=== PATIENT | female | born 1970 | race Caucasian/White ===

== ENCOUNTER → 2019-06-05 | Outpatient (CLI) | payer OTHER ==
[2019-06-06 14:10] LABS: Beef IgE <0.10 kU/L (<0.10); Beef IgE Class CLASS 0; Pork IgE Class CLASS 0; Yeast Bakers/Brew IgE <0.10 kU/L (<0.10)
[2019-06-06 14:11] LABS: Alt. alternata IgE Class CLASS 1; Asperg. fumagatus IgE <0.10 kU/L (<0.10); Asperg. fumagatus IgE Class CLASS 0; Aureo. pullulans IgE <0.10 kU/L (<0.10); Aureo. pullulans IgE Class CLASS 0; Avocado Class CLASS 0; Banana IgE Class CLASS 0; Birch(Com.Silvr) IgE <0.10 kU/L (<0.10); Birch(Com.Silvr) IgE Class CLASS 0; Candida albicans IgE Class CLASS 0; Cat Epith & Dander IgE <0.10 kU/L (<0.10); Cat Epith & Dander IgE Class CLASS 0; Chicken IgE Class CLASS 0; Clad herbarum IgE <0.10 kU/L (<0.10); Clad herbarum IgE Class CLASS 0; Cockroach IgE <0.10 kU/L (<0.10); Com. Pigweed IgE <0.10 kU/L (<0.10); Com. Pigweed IgE Class CLASS 0; Cottonwood IgE <0.10 kU/L (<0.10); Cow's Milk IgE Class CLASS 0; Dermato. Pteronyssinus Class CLASS 0; Dermato. Pteronyssinus IgE <0.10 kU/L (<0.10); Dermato. farinae IgE <0.10 kU/L (<0.10); Dermato. farinae IgE Class CLASS 0; Dog Dander IgE <0.10 kU/L (<0.10); Egg White IgE <0.10 kU/L (<0.10); English Plantain IgE Class CLASS 0; Epicoccum purpurascens Class CLASS 0; Epicoccum purpurascens IgE <0.10 kU/L (<0.10); Gluten IgE Class CLASS 0; Hazelnut IgE <0.10 kU/L (<0.10); Hazelnut IgE Class CLASS 0; Johnson Grass IgE Class CLASS 0; Kiwi IgE <0.10 kU/L (<0.10); Kiwi IgE Class CLASS 0; Lamb's Quarter IgE <0.10 kU/L (<0.10); Lamb's Quarter IgE Class CLASS 0; Latex IgE Class CLASS 0; Maple (Box Elder) IgE <0.10 kU/L (<0.10); Maple (Box Elder) IgE Class CLASS 0; Mucor racemosus IgE <0.10 kU/L (<0.10); Mucor racemosus IgE Class CLASS 0; Oak IgE <0.10 kU/L (<0.10); Peanut IgE <0.10 kU/L (<0.10); Potato IgE <0.10 kU/L (<0.10); Potato IgE Class CLASS 0; Rhizopus nigricans IgE <0.10 kU/L (<0.10); S.rostrata/Helminth Class CLASS 0; S.rostrata/Helminth IgE <0.10 kU/L (<0.10); Soybean IgE <0.10 kU/L (<0.10); Sycamore(Mpl.Lf) IgE <0.10 kU/L (<0.10); Timothy Grass IgE <0.10 kU/L (<0.10); Walnut Tree IgE <0.10 kU/L (<0.10); Walnut Tree IgE Class CLASS 0; White Ash IgE Class CLASS 0
== END ==
LOC: LABWHC1 11:49
PROVIDERS: ATTEND Otolaryngology
DX: L50.0 Allergic urticaria (principal)
CPT/HCPCS: 36415; 86003

== ENCOUNTER 2021-02-24 09:08 | Day surgery (SDC) | payer OTHER ==
[2021-02-22 09:31] VITALS: BMI 34.6
[~2021-02-24 09:08] MED LIST: LACTATED RINGERS 1,000 ML IV SCH
[2021-02-24] MEDS ORDERED: LIDOCAINE 1% (10MG/ML) FOR IV START INTRADERMA ONE (09:30)
[2021-02-24 09:45] VITALS: TEMP 97.3
[2021-02-24 09:48] LABS: Glucose,Whole Blood 110 mg/dL (75-99)
[2021-02-24] MEDS ORDERED: LIDOCAINE 1% INJ 10MG/ML (20 ML MDV) ONE (10:12)
[2021-02-24] MEDS ORDERED: PROPOFOL 10 MG/ML 20 ML VIAL IV ONE (10:12)
[2021-02-24 10:38] VITALS: BP 124/70; PULSE 70; RESP 14
--- NOTE | 2021-02-24 10:39 | P.GSHP ---
History of Present Illness H&P Date: 02/24/21 CHIEF COMPLAINT: Colon screen HISTORY OF PRESENT ILLNESS: The patient is a 50-year-old female who presents for colon screen. Lower endoscopy was offered for further evaluation and management. PAST MEDICAL HISTORY: Please see list. PAST SURGICAL HISTORY: Please see list. MEDICATIONS: Please see list. ALLERGIES: Please see list. SOCIAL HISTORY: No illicit drug use FAMILY HISTORY: No reports of Crohn disease or ulcerative colitis. REVIEW OF ORGAN SYSTEMS: CONSTITUTIONAL: No reports of fevers or chills. PHYSICAL EXAM: VITAL SIGNS: Stable GENERAL: Well-developed pleasant in no acute distress. HEENT: No scleral icterus. Extraocular movements grossly intact. Moist buccal mucosa. NECK: Supple without lymphadenopathy. CHEST: Unlabored respirations. Equal bilateral excursions. CARDIOVASCULAR: Regular rate and rhythm. Distal 2+ pulses. ABDOMEN: Soft, nontender, nondistended. MUSCULOSKELETAL: No clubbing, cyanosis, or edema. ASSESSMENT: 1. Colon screen. PLAN: 1. Recommend proceeding with a lower endoscopy Past Medical History Past Medical History: Hypertension History of Any Multi-Drug Resistant Organisms: None Reported Past Surgical History: Hysterectomy, Uterine Ablation Additional Past Surgical History / Comment(s): colonoscopy Past Anesthesia/Blood Transfusion Reactions: No Reported Reaction, Postoperative Nausea & Vomiting (PONV) Smoking Status: Never smoker - Past Family History Mother Family Medical History: Cancer Additional Family Medical History / Comment(s): colon cancer Medications and Allergies Home Medications Medication Instructions Recorded Confirmed Type Escitalopram [Lexapro] 5 mg PO DAILY 02/22/21 02/22/21 History Hydrochlorothiazide 12.5 mg PO DAILY 02/22/21 02/22/21 History [hydroCHLOROthiazide] [place]-3 Fatty Acids/Fish Oil [Fish 1 each PO DAILY 02/22/21 02/22/21 History Oil 1,000 mg Softgel] Vit C/E/Zn/Coppr/Lutein/Zeaxan 1 each PO DAILY 02/22/21 02/22/21 History [Preservision Areds 2 Softgel] Allergies Allergy/AdvReac Type Severity Reaction Status Date / Time cephalexin [From Keflex] Allergy Rash/Hives Verified 02/24/21 09:22 Surgical - Exam Vital Signs Temp Pulse Resp BP Pulse Ox 97.3 F L 73 16 135/86 98 02/24/21 09:30 02/24/21 09:30 02/24/21 09:30 02/24/21 09:30 02/24/21 09:30 Results - Labs Abnormal Lab Results - Last 24 Hours (Table) 02/24/21 Range/Units 09:39 POC Glucose (mg/dL) 110 H (75-99) mg/dL
--- NOTE | 2021-02-24 10:41 | P.PCN ---
Date of Procedure: 02/24/21 Description of Procedure: PREOPERATIVE DIAGNOSIS: Colonoscopy screening. Family history colon cancer, mother POSTOPERATIVE DIAGNOSIS: Colonoscopy screening. Family history colon cancer, mother Poor prep OPERATION: Colonoscopy to the transverse colon SURGEON: Adrianne Marin MD. ANESTHESIA: MAC. INDICATIONS: The patient is a 50-year-old female who presents for colonoscopy screening. Benefits and risks were described and informed consent was obtained. DESCRIPTION OF PROCEDURE: The patient had undergone Suprep. The patient had been brought into the operating room and laid in the left lateral decubitus position. After adequate intravenous sedation, the rectum was examined with 2% lidocaine jelly. External hemorrhoids were encountered. The rectal tone was within normal limits. No lesions were palpated in the rectal vault. An Olympus colonoscope was advanced with abdominal wall pressure to the hub of the scope. The scope reached the mid- transverse colon. The prep was poor limiting view of the mucosa with moderate brown liquid stool. No large scattered diverticulosis was encountered. No large colonic polyps were found distal the to ascending colon. Retroflexion of the scope demonstrated grade 3 internal hemorrhoids without active bleeding or inflammation. The colon was desufflated. The patient had tolerated the procedure well. Withdrawal time was over 6 minutes. FINDINGS: Aronchick preparation quality scale 4 (1-5) Internal hemorrhoids, grade 3 External prolapsed hemorrhoids, grade 3 No arteriovenous malformations. No large adenomatous polyps distal to ascending colon RECOMMENDATIONS: 1. Recommend barium enema for ascending colon, cecum and ileocecal valve. 2. Recommend 2 days colon prep 3. For high risk history, repeat colonoscopy 3 years, 2023 Plan - Discharge Summary Discharge Rx Participant: No New Discharge Prescriptions: Continue Vit C/E/Zn/Coppr/Lutein/Zeaxan [Preservision Areds 2 Softgel] 1 each PO DAILY Escitalopram [Lexapro] 5 mg PO DAILY Hydrochlorothiazide [hydroCHLOROthiazide] 12.5 mg PO DAILY [place]-3 Fatty Acids/Fish Oil [Fish Oil 1,000 mg Softgel] 1 each PO DAILY Discharge Medication List Escitalopram [Lexapro] 5 mg PO DAILY 02/22/21 [History] Hydrochlorothiazide [hydroCHLOROthiazide] 12.5 mg PO DAILY 02/22/21 [History] [place]-3 Fatty Acids/Fish Oil [Fish Oil 1,000 mg Softgel] 1 each PO DAILY 02/22/21 [History] Vit C/E/Zn/Coppr/Lutein/Zeaxan [Preservision Areds 2 Softgel] 1 each PO DAILY 02/22/21 [History] Follow up Appointment(s)/Referral(s): Adrianne Marin MD [STAFF PHYSICIAN] - 03/15/21 Patient Instructions/Handouts: Barium Enema (IP), *Surgery [facility] - (Anesthesia) Endoscopy Discharge Instructions, Colonoscopy (DC) Activity/Diet/Wound Care/Special Instructions: Recommend 2 day colon prep. Will need barium enema. Repeat colonoscopy in 3 years, 2023 Discharge Disposition: HOME SELF-CARE
== END 2021-02-24 11:18 | disposition home or self-care (01) ==
LOC: ORWHC2ENDO 09:08
PROVIDERS: ATTEND Surgery Plastic and Reconstructive Surgery
DX: Z12.11 Encounter for screening for malignant neoplasm of colon (principal); I10 Essential (primary) hypertension; Z80.0 Family history of malignant neoplasm of digestive organs; Z79.899 Other long term (current) drug therapy; Z88.1 Allergy status to other antibiotic agents
CPT/HCPCS: 81025; G0121; J2001; J2704

== ENCOUNTER → 2024-05-14 | Day surgery (SDC) | payer BC, OTHER ==
[~2024-05-14] MED LIST changes: +LIDOCAINE 1% (10MG/ML) FOR IV START INTRADERMA PRN; +LIDOCAINE 1% INJ 10MG/ML (20 ML MDV) ONE; +PROPOFOL 10 MG/ML 20 ML VIAL IV ONE
[2024-05-14] MEDS: IV FLUID CONTINUATION 1,000 ML IV ONE (07:41)
[2024-05-14 07:52] VITALS: TEMP 97
--- NOTE | 2024-05-14 08:21 | P.GSHP ---
History of Present Illness H&P Date: 05/14/24 CHIEF COMPLAINT: Colon screen HISTORY OF PRESENT ILLNESS: The patient is a 54-year-old female who presents for colon screen. Lower endoscopy was offered for further evaluation and management. PAST MEDICAL HISTORY: Please see list. PAST SURGICAL HISTORY: Please see list. MEDICATIONS: Please see list. ALLERGIES: Please see list. SOCIAL HISTORY: No illicit drug use FAMILY HISTORY: No reports of Crohn disease or ulcerative colitis. REVIEW OF ORGAN SYSTEMS: CONSTITUTIONAL: No reports of fevers or chills. PHYSICAL EXAM: VITAL SIGNS: Stable GENERAL: Well-developed pleasant in no acute distress. HEENT: No scleral icterus. Extraocular movements grossly intact. Moist buccal mucosa. NECK: Supple without lymphadenopathy. CHEST: Unlabored respirations. Equal bilateral excursions. CARDIOVASCULAR: Regular rate and rhythm. Distal 2+ pulses. ABDOMEN: Soft, nontender, nondistended. MUSCULOSKELETAL: No clubbing, cyanosis, or edema. ASSESSMENT: 1. Colon screen. PLAN: 1. Recommend proceeding with a lower endoscopy Past Medical History Past Medical History: Hypertension Additional Past Medical History / Comment(s): family hx. colon cancer History of Any Multi-Drug Resistant Organisms: None Reported Past Surgical History: Cholecystectomy, Uterine Ablation Additional Past Surgical History / Comment(s): colonoscopy Past Anesthesia/Blood Transfusion Reactions: Postoperative Nausea & Vomiting (PONV) Smoking Status: Never smoker - Past Family History Mother Family Medical History: Cancer Additional Family Medical History / Comment(s): colon cancer Medications and Allergies Home Medications Medication Instructions Recorded Confirmed Type Vit C/E/Zn/Coppr/Lutein/Zeaxan 1 each PO BID 02/22/21 05/14/24 History [Preservision Areds 2 Softgel] hydroCHLOROthiazide 25 mg PO DAILY 02/22/21 05/14/24 History FLUoxetine HCL [PROzac] 10 mg PO DAILY 05/09/24 05/14/24 History Allergies Allergy/AdvReac Type Severity Reaction Status Date / Time cephalexin [From Keflex] Allergy Rash/Hives Verified 05/14/24 07:53 Surgical - Exam Vital Signs Temp Pulse Resp BP Pulse Ox 97.0 F L 88 16 166/84 97 05/14/24 07:51 05/14/24 07:51 05/14/24 07:51 05/14/24 07:51 05/14/24 07:51
--- NOTE | 2024-05-14 09:38 | P.PCN ---
Date of Procedure: 05/14/24 Description of Procedure: PREOPERATIVE DIAGNOSIS: Colonoscopy screening. Family history colon cancer POSTOPERATIVE DIAGNOSIS: Colonoscopy screening. Internal and external hemorrhoids, grade 3 OPERATION: Colonoscopy to the hepatic flexure SURGEON: Adrianne Marin MD. ANESTHESIA: MAC. INDICATIONS: The patient is a 54-year-old female who presents for colonoscopy screening. Benefits and risks were described and informed consent was obtained. DESCRIPTION OF PROCEDURE: The patient had undergone GoLytely prep. The patient had been brought into the operating room and laid in the left lateral decubitus position. After adequate intravenous sedation, the rectum was examined with 2% lidocaine jelly. No external hemorrhoids were encountered. The rectal tone was within normal limits. No lesions were palpated in the rectal vault. An Olympus colonoscope was advanced throughout highly redundant sigmoid colon requiring abdominal pressure to the hepatic flexure. The scope was advanced to the hub. The prep was good. Scattered diverticulosis was encountered. No colonic polyps were found. No evidence of focal colitis was found. Retroflexion of the scope demonstrated grade 1 internal hemorrhoids without active bleeding or inflammation. The colon was desufflated. The patient had tolerated the procedure well. Withdrawal time was over 6 minutes. FINDINGS: Aronchick preparation quality scale (1-5) Internal hemorrhoids, grade 3 External prolapsed hemorrhoids, grade 3 No arteriovenous malformations. No adenomatous polyps. No focal colitis. Highly redundant sigmoid colon requiring completion barium enema to the hepatic flexure RECOMMENDATIONS: Recommend barium enema Repeat colonoscopy 5 years, 2028 Plan - Discharge Summary Discharge Rx Participant: No New Discharge Prescriptions: New Lactulose [Cephulac] 20 gm PO DAILY PRN #500 ml PRN Reason: Constipation Continue Vit C/E/Zn/Coppr/Lutein/Zeaxan [Preservision Areds 2 Softgel] 1 each PO BID FLUoxetine HCL [PROzac] 10 mg PO DAILY hydroCHLOROthiazide 25 mg PO DAILY Discharge Medication List Vit C/E/Zn/Coppr/Lutein/Zeaxan [Preservision Areds 2 Softgel] 1 each PO BID 02/22/21 [History] hydroCHLOROthiazide 25 mg PO DAILY 02/22/21 [History] FLUoxetine HCL [PROzac] 10 mg PO DAILY 05/09/24 [History] Lactulose [Cephulac] 20 gm PO DAILY PRN #500 ml 05/14/24 [Rx] Follow up Appointment(s)/Referral(s): Adrianne Marin MD [STAFF PHYSICIAN] - 06/03/24 2:30 pm Patient Instructions/Handouts: *Surgery [facility] - (Anesthesia) Discharge Instructions Outpatient Surgery, Hemorrhoids (DC) Activity/Diet/Wound Care/Special Instructions: Repeat colonoscopy 5 years, 2028 Discharge Disposition: HOME SELF-CARE
[2024-05-14 11:35] VITALS: BP 138/83; PULSE 75; RESP 16
--- NOTE | 2024-05-14 13:29 | FL ---
EXAMINATION TYPE: FL barium enema DATE OF EXAM: 05/14/2024 12:57 PM CLINICAL INDICATION:Female, 54 years old with history of incomplete scope to hep flexure; COMPARISON: None TECHNIQUE: The procedure was explained and patient history elicited. All patient questions were answ ered prior to beginning. Multiple spot fluoroscopic images of the colon were obtained after the recta l administration of liquid barium as the contrast agent. Multiple postprocedural overhead images, w ere obtained and reviewed. Fluoroscopic time: 1 minute 16 seconds Fluoroscopic images:0 Radiographs taken: 31 DAP: not recorded [id number] FINDINGS: The healthcare advisory services manager abdominal radiograph demonstrates a normal bowel gas pattern without dilated loo ps of small or large bowel. There is no evidence for organomegaly or pneumoperitoneum. No abnormal calcifications. The visualized osseous structures are intact. Cholecystectomy clips in the right upp er quadrant. Large amount of gas throughout seen throughout the colon which limits evaluation. The colon demonstra michaela normal course and contour without evidence of focal stricture, internal filling defects, or abnor mal outpouching. Views of the cecum with manual compression are unremarkable. Postevacuation images are unremarkable. IMPRESSION: Extensive gas in the cecum and ascending colon limits evaluation. No evidence for abnormal stricture or mass lesion within the sigmoid colon. [facility], , 05/14/2024 1:27 PM
== END | disposition home or self-care (01) ==
LOC: ORWHC2ENDO 07:26
PROVIDERS: ATTEND Surgery Plastic and Reconstructive Surgery
DX: Z12.11 Encounter for screening for malignant neoplasm of colon (principal); K57.30 Diverticulosis of large intestine without perforation or abscess without bleeding; K64.2 Third degree hemorrhoids; Z80.0 Family history of malignant neoplasm of digestive organs; I10 Essential (primary) hypertension; Z79.899 Other long term (current) drug therapy; Z88.1 Allergy status to other antibiotic agents
CPT/HCPCS: 81025; 74270; J2003; J2704; G0105; 45378

== ENCOUNTER 2024-11-13 09:08 | Inpatient (IN) | payer BC ==
[2024-11-12 09:31] VITALS: BMI 38.6
--- NOTE | 2024-11-13 08:30 | P.GSHP ---
History of Present Illness H&P Date: 11/13/24 CHIEF COMPLAINT: History of sigmoid volvulus HISTORY OF PRESENT ILLNESS: The patient is a 54-year-old female with long- standing history of chronic constipation including large bowel obstruction secondary to sigmoid volvulus. She presents for colonoscopy tattooing including decompression of the colon for sigmoid volvulus. She presents for sigmoid colon resection. PAST MEDICAL HISTORY: Please see list. PAST SURGICAL HISTORY: Please see list. MEDICATIONS: Please see list. ALLERGIES: Please see list. SOCIAL HISTORY: No illicit drug use FAMILY HISTORY: No reports of Crohn disease or ulcerative colitis. REVIEW OF ORGAN SYSTEMS: CONSTITUTIONAL: Denies any fever or chills. Has morbid obesity. HEENT: Denies any trouble with vision or nosebleeds. No difficulty swallowing. LYMPHATIC: The patient denies any lumps and bumps around the neck. ENDOCRINE: Denies any thyroid disorders. RESPIRATORY: Denies pneumonia. Denies any troubles with breathing or dyspnea on exertion. CARDIOVASCULAR: Denies any chest pain, palpitations, or recent heart attacks. Has hypertensive heart disease. GASTROINTESTINAL: Has gastroesophageal reflux disease. Has chronic constipation. GENITOURINARY: No blood in urine. MUSCULOSKELETAL: Has back pain, stiffness, joint arthritis. NEUROLOGIC: Denies any numbness or tingling along the distal extremities. No seizure disorders or headaches. PSYCHIATRIC: Has depressive disorder. Has anxiety disorder. HEMATOLOGIC: Denies any abnormal bleeding or bruising. PHYSICAL EXAM: VITAL SIGNS: Stable GENERAL: Well-developed pleasant in no acute distress. HEENT: No scleral icterus. Extraocular movements grossly intact. Moist buccal mucosa. NECK: Supple without lymphadenopathy. CHEST: Unlabored respirations. Equal bilateral excursions. CARDIOVASCULAR: Regular rate and rhythm. Distal 2+ pulses. ABDOMEN: Soft, nontender, nondistended. MUSCULOSKELETAL: No clubbing, cyanosis, or edema. NERUO: Cranial nerves II through XII grossly intact PSYCH: Alert and oriented to person place and time. ASSESSMENT: 1. History of large bowel obstruction. 2. Sigmoid volvulus. 3. Morbid obesity excess calories PLAN: 1. Recommend endoscopic assessment with colon decompression and tattooing 2. Enhanced colon recovery program initiated. 3. DVT prophylaxis. 4. Antibiotic prophylaxis. 5. Benefits and risks of surgical intervention with low anterior resection/sigmoid colectomy for volvulus reviewed in detail. Robotic-assisted approach was also described. Past Medical History Past Medical History: Hypertension Additional Past Medical History / Comment(s): "My colon is too long."family hx. colon cancer History of Any Multi-Drug Resistant Organisms: None Reported Past Surgical History: Cholecystectomy, Uterine Ablation Additional Past Surgical History / Comment(s): colonoscopy. Vein removed rt leg. Past Anesthesia/Blood Transfusion Reactions: No Reported Reaction, Postoperative Nausea & Vomiting (PONV) Smoking Status: Never smoker - Past Family History Mother Family Medical History: Cancer Additional Family Medical History / Comment(s): colon cancer Medications and Allergies Home Medications Medication Instructions Recorded Confirmed Type Vit C/E/Zn/Coppr/Lutein/Zeaxan 1 each PO BID 02/22/21 11/12/24 History [Preservision Areds 2 Softgel] hydroCHLOROthiazide 25 mg PO QAM 02/22/21 11/12/24 History FLUoxetine HCL [PROzac] 10 mg PO QAM 05/09/24 11/12/24 History Lactulose [Cephulac] 20 gm PO HS 11/12/24 11/12/24 History Allergies Allergy/AdvReac Type Severity Reaction Status Date / Time cephalexin [From Keflex] Allergy Rash/Hives Verified 11/12/24 09:23
[~2024-11-13 09:08] MED LIST changes: +Antibiotics per Pharmacy 1 EACH MISC MISCELLANE PRN; -LACTATED RINGERS 1,000 ML IV SCH; -LIDOCAINE 1% (10MG/ML) FOR IV START INTRADERMA PRN; -LIDOCAINE 1% INJ 10MG/ML (20 ML MDV) ONE; -PROPOFOL 10 MG/ML 20 ML VIAL IV ONE
[2024-11-13] MEDS: IV FLUID CONTINUATION 1,000 ML IV ONE ×2 (09:37→11:07)
[2024-11-13] MEDS: LACTATED RINGERS 1,000 ML IV SCH (10:01)
[2024-11-13] MEDS ORDERED: PROPOFOL 10 MG/ML 20 ML VIAL IV ONE (10:26)
--- NOTE | 2024-11-13 10:47 | P.PCN ---
Date of Procedure: 11/13/24 Description of Procedure: PREOPERATIVE DIAGNOSIS: Sigmoid volvulus Intermittent large bowel obstruction POSTOPERATIVE DIAGNOSIS: Sigmoid volvulus Intermittent large bowel obstruction Diverticulosis, sigmoid OPERATION: Colonoscopy to the hepatic flexure SURGEON: Adrianne Marin MD. ANESTHESIA: MAC. INDICATIONS: The patient is a 54-year-old male who presents with sigmoid volvulus and intermittent large bowel obstruction. She presents for tattooing and decompression of sigmoid volvulus. Benefits and risks were described and informed consent was obtained. DESCRIPTION OF PROCEDURE: The patient had undergone SuFlave prep. The patient had been brought into the operating room and laid in the left lateral decubitus position. After adequate intravenous sedation, the rectum was examined with 2% lidocaine jelly. External hemorrhoids were encountered. Prostate was unremarkable. The rectal tone was within normal limits. No lesions were palpated in the rectal vault. An Olympus colonoscope was advanced through tortuous sigmoid colon requiring abdominal wall pressure. Despite multiple maneuvers scope passed to the ascending colon without intubation of the cecum. The prep was fair. Scattered diverticulosis was encountered. No evidence of focal colitis was found. Retroflexion of the scope demonstrated grade 2 internal hemorrhoids without active bleeding or inflammation. The colon was desufflated. The patient had tolerated the procedure well. Withdrawal time was over 6 minutes. FINDINGS: Aronchick preparation quality scale 2+ (1-5) Internal hemorrhoids, grade 1 External prolapsed hemorrhoids, grade 1 No arteriovenous malformations. Highly redundant sigmoid colon requiring abdominal wall pressure No focal colitis. RECOMMENDATIONS: Admission for sigmoid colectomy for intermittent bowel obstruction
[2024-11-13 11:05] LABS: ALT 23 U/L (4-34); AST 29 U/L (14-36); African American GFR (CKD) >90 (>60 ml/min/1.73 sqM); Albumin 4.5 g/dL (3.5-5.0); Alkaline Phosphatase 84 U/L (38-126); Anion Gap 13 mmol/L; Blood Urea Nitrogen 10 mg/dL (7-17); Calcium 9.4 mg/dL (8.4-10.2); Carbon Dioxide 27 mmol/L (22-30); Chloride 97 mmol/L (98-107); Glucose 106 mg/dL (74-99); Non-African American GFR(CKD) >90 (>60 ml/min/1.73 sqM); Potassium 3.6 mmol/L (3.5-5.1); Sodium 137 mmol/L (137-145); Total Bilirubin 0.8 mg/dL (0.2-1.3); Total Protein 7.7 g/dL (6.3-8.2)
[2024-11-13] MEDS: SODIUM CHLORIDE 0.9% 1,000 ML IV SCH ×2 (11:07→13:37)
[2024-11-13] MEDS ORDERED: ONDANSETRON 4 MG/2 ML VIAL IVP PRN (11:13)
[2024-11-13 11:14] LABS: Basophils # (A) 0.07 10*3/uL (0.00-0.10); Eosinophils # (A) 0.13 10*3/uL (0.04-0.35); Eosinophils % (A) 1.9 %; HCT 43.6 % (37.2-46.3); HGB 15.6 g/dL (12.0-15.0); Lymphocytes # (A) 1.82 10*3/uL (0.90-5.00); Lymphocytes % (A) 27.2 %; MCH 30.5 pg (27.0-32.0); MCHC 35.8 g/dL (32.0-37.0); MCV 85.3 fL (80.0-97.0); Mean Platelet Volume 12.7 fL (9.5-12.2); Monocytes # (A) 0.41 10*3/uL (0.20-1.00); Monocytes % (A) 6.1 %; Neutrophils # (A) 4.24 10*3/uL (1.80-7.70); Neutrophils % (A) 63.5 %; Platelet Count 209 10*3/uL (140-440); RBC 5.11 10*6/uL (4.10-5.20); RDW 13.2 % (11.5-14.5); WBC 6.69 10*3/uL (4.50-10.00)
[2024-11-13] MEDS: SCOPOLAMINE 1 MG/72 HR PATCH TRANSDERM STA (11:18)
[2024-11-13] MEDS: POTASSIUM CHLORIDE ER 20 MEQ TAB.ER PO SCH (13:36)
[2024-11-13] MEDS: metroNIDAZOLE 500 MG TAB PO SCH (14:38)
[2024-11-13] MEDS: PEG 3350 (420 GM/BTL) + LYTES 4,000 ML BOTTLE PO ONE (14:39)
[2024-11-13] MEDS: NEOMYCIN 500 MG TAB PO SCH ×2 (14:39→23:23)
[2024-11-13] MEDS: metroNIDAZOLE 500 MG TAB PO ONE (15:36)
[2024-11-13] MEDS: NEOMYCIN 500 MG TAB PO ONE (15:36)
[2024-11-13] MEDS: ONDANSETRON 4 MG/2 ML VIAL IVP SCH (19:29)
[2024-11-13] MEDS: TEMAZEPAM 15 MG CAP PO ONE (23:22)
[2024-11-14] MEDS ORDERED: ONDANSETRON 4 MG/2 ML VIAL IVP PRN (05:00)
[2024-11-14] MEDS ORDERED: metroNIDAZOLE-NS PMX 500 MG in SALINE 1 100ML.BAG IVPB PRN (05:00)
[2024-11-14 05:01] LABS: HCT 35.1 % (37.2-46.3); MCH 29.9 pg (27.0-32.0); MCHC 33.3 g/dL (32.0-37.0); MCV 89.8 fL (80.0-97.0); Platelet Count 177 10*3/uL (140-440); RBC 3.91 10*6/uL (4.10-5.20); RDW 13.8 % (11.5-14.5); WBC 5.62 10*3/uL (4.50-10.00)
[2024-11-14 05:11] LABS: African American GFR (CKD) >90 (>60 ml/min/1.73 sqM); Anion Gap 6 mmol/L; Blood Urea Nitrogen 5 mg/dL (7-17); Calcium 8.8 mg/dL (8.4-10.2); Carbon Dioxide 22 mmol/L (22-30); Chloride 109 mmol/L (98-107); Glucose 85 mg/dL (74-99); Non-African American GFR(CKD) >90 (>60 ml/min/1.73 sqM); Potassium 4.5 mmol/L (3.5-5.1); Sodium 137 mmol/L (137-145)
[2024-11-14 05:20] LABS: HGB 11.7 g/dL (12.0-15.0)
[2024-11-14 06:34] LABS: Eosinophils # (M) 0.06 k/uL (0-0.7); Lymphocytes # (M) 1.97 k/uL (1.0-4.8); Monocytes # (M) 0.45 k/uL (0-1.0); Neutrophils # (M) 3.15 k/uL (1.3-7.7); Neutrophils % (M) 56 %; Nucleated Red Blood Cells 0 /100 WBC (0-0); RBC Morphology Normal; Total Cells Counted 100
--- NOTE | 2024-11-14 07:20 | P.HPADDEND ---
H&P Addendum H&P Addendum Date: 11/14/24 Patient's labs reviewed. She had artificial elevation of her hemoglobin due to dehydration. After 2 L bolus and hydration, hemoglobin less than 12.0. Will monitor. Potassium corrected. Robotic sigmoid colectomy for sigmoid volvulus and intermittent bowel obstruction described.
[2024-11-14] MEDS: metroNIDAZOLE 500 MG TAB PO SCH (08:09)
[2024-11-14] MEDS: IV FLUID CONTINUATION 250 ML IV ONE (08:17)
[2024-11-14] MEDS: FLUoxetine HCL 10 MG CAP PO SCH (08:23)
[2024-11-14] MEDS: MELOXICAM 7.5 MG TAB PO PRN (08:36)
[2024-11-14] MEDS: ACETAMINOPHEN TAB 500 MG TAB PO PRN (08:36)
[2024-11-14] MEDS: ALVIMOPAN 12 MG CAPSULE PO PRN (08:37)
[2024-11-14] MEDS: DEXAMETHASONE SOD PHOSPHATE 4 MG/ML 1 ML VIAL IVP STA (08:43)
[2024-11-14] MEDS: MIDAZOLAM 2 MG/2 ML VIAL IV STA (09:25)
[2024-11-14] MEDS: HEPARIN SODIUM,PORCINE 5,000 UNIT/ML 1 ML VIAL SQ PRN (09:40)
[2024-11-14] MEDS ORDERED: ROPIVACAINE 5 MG/ML 30 ML VIAL ONE (10:05)
[2024-11-14] MEDS ORDERED: LIDOCAINE 1% INJ 10MG/ML (20 ML MDV) ONE (10:05)
[2024-11-14] MEDS ORDERED: SODIUM CHLORIDE 0.9% (PF) 10 ML VIAL ONE (10:05)
[2024-11-14] MEDS ORDERED: PROPOFOL 10 MG/ML 20 ML VIAL IV ONE (10:05)
[2024-11-14] MEDS ORDERED: HYDROmorphone (PF) 1 MG/ML ONE (10:05)
[2024-11-14] MEDS ORDERED: GLYCOPYRROLATE 0.2 MG/ML 2 ML VIAL ONE (10:05)
[2024-11-14] MEDS ORDERED: ROCURONIUM 10 MG/ML (5 ML VIAL) IV ONE (10:05)
[2024-11-14] MEDS ORDERED: SUCCINYLCHOLINE CHLORIDE 200 MG/10 ML VIAL IV ONE (10:05)
[2024-11-14] MEDS ORDERED: fentaNYL (PF) 50 MCG/ML 2 ML AMP ONE (10:05)
[2024-11-14] MEDS ORDERED: DEXAMETHASONE SOD PHOSPHATE 4 MG/ML 1 ML VIAL ONE (10:05)
[2024-11-14] MEDS ORDERED: MIDAZOLAM 2 MG/2 ML VIAL ONE (10:05)
[2024-11-14] MEDS ORDERED: NEOSTIGMINE 1 MG/ML 10 ML VIAL ONE (10:05)
[2024-11-14] MEDS: ceFAZolin 2 GM in DEXTROSE 5% IN WATER 50 ML IVPB PRN (10:09)
[2024-11-14] MEDS: LACTATED RINGERS 1,000 ML IV ONE ×2 (10:19→10:22)
[2024-11-14] MEDS: LIDOCAINE 1%-EPI 1:100,000 20 ML VIAL SQ ONE (10:37)
[2024-11-14] MEDS ORDERED: HYDROmorphone 1 MG/ML 1 ML SYRINGE IVP PRN (13:03)
[2024-11-14] MEDS ORDERED: METOCLOPRAMIDE 5 MG/ML 2 ML VIAL IVP PRN (13:03)
[2024-11-14] MEDS ORDERED: BENZOCAINE/MENTHOL LOZENG 1 EACH LOZENGE MUCOUS MEM PRN (13:03)
[2024-11-14] MEDS ORDERED: NALOXONE 0.4 MG/ML 1 ML VIAL IV PRN (13:10)
--- NOTE | 2024-11-14 13:24 | P.OP ---
Date of Procedure: 11/14/24 Description of Procedure: SURGEON: GLEN BUSBY MD PREOPERATIVE DIAGNOSES: 1. Sigmoid volvulus with intermittent bowel obstruction 2. Sigmoid diverticulosis 3. Morbid obesity to excess calories, BMI 38.5 4. Hypertensive heart disease 5. Depressive disorder 6. Postoperative nausea and vomiting 7. Generalized anxiety disorder 8. Family history colon cancer POSTOPERATIVE DIAGNOSES: 1. Sigmoid volvulus with intermittent bowel obstruction 2. Sigmoid diverticulosis 3. Morbid obesity to excess calories, BMI 38.5 4. Hypertensive heart disease 5. Depressive disorder 6. Postoperative nausea and vomiting 7. Generalized anxiety disorder 8. Family history colon cancer 9. Pelvic adhesions OPERATION: 1. Robotic-assisted daVinci Xi sigmoid colectomy with low anterior resection using 29 mm Ethicon powered stapler 2. Intraoperative colonoscopy used for sigmoidoscopy Anesthesia: GETA, local, regional Estimated Blood Loss (ml): 5 Pathology: 1. Sigmoid colon 2. EEA donuts 3. Proximal colotomy Condition: stable Disposition: floor COMPLICATIONS: None. Operative Findings: 1. Redundant sigmoid colon with intermittent sigmoid volvulus 2. Anastomosis with EEA stapler 29 mm 3. No tension or torsion along the anastomosis 4. Doughnuts thick and both sides and viable 5. Moderately redundant sigmoid colon without tension at anastomosis 6. Negative leak test with viable anastomosis. 7. Pelvic adhesions along midline, lysed including along sigmoid colon INDICATIONS: The patient is a 54-year-old female who presents with intermittent bowel obstruction including change in bowel habits and tortuous colon. She had prior colonoscopy however unsuccessful due to redundancy of colon. Enhanced colon recovery program was initiated. Benefits and risks of surgical intervention was described in detail including infection, injury to the ureter, colostomy creation, possibility for additional surgery was discussed at length. Informed consent was obtained. All questions of the patient and family were answered. DESCRIPTION: Earlier the patient had undergone a bowel prep using the enhanced colon recovery program. The patient was transferred to the operating room and placed supine. After general induction, the abdomen was prepped and draped in standard sterile fashion. Ioban was placed along the abdomen to minimize any contamination of skin floor. A Em catheter was placed. After a timeout protocol was performed, attention was then brought to the left upper quadrant whereby a 0 degree 5 mm laparoscopic trocar entry was performed. The abdominal cavity was entered and insufflated to 15 mmHg pressure, which was tolerated well. Diagnostic laparoscopy confirmed moderately redundant sigmoid colon intermittent sigmoid volvulus. The small bowel was unremarkable. Next a robotic 12-mm trocar was placed along the right lateral abdominal wall 20 cm superior from the pelvis. Two 8 mm ports were placed along the upper abdomen. Ports were placed 10 cm apart from each other including 20 cm away from the target anatomy of the left pelvis. A 12-mm port was placed at the left lateral abdominal wall. The robot was docked along the right lateral abdomen. The patient was positioned in steep Trendelenburg position at 21-degrees. Using atraumatic graspers and vessel sealer, the robotic system was docked and primed as described. Instruments were interchanged by the respiratory assistant including hook cautery, needle stock driver, robotic stapler and vessel sealer. The robot stapler was prepared along the right lateral abdominal wall. The stapler 12-mm port was arranged along the right lateral abdominal wall. Next, attention was brought to identify the sigmoid colon. Adhesions along the lower midline was identified omentum to abdominal wall and lysed using vessel sealer. Additional adhesions were found of the pelvis involving the sigmoid colon and descending colon. These adhesions were lysed using hook cautery. A stay suture using 3- 0 silk was placed along the anterior serosa of the redundant sigmoid colon. The sigmoid mesentery was mobilized using a vessel sealer whereby the descending colon was marked and tagged. Using robot stapler 60 mm green load, the proximal sigmoid colon was divided. The mesentery of the sigmoid colon was mobilized towards the pelvic brim and sacral promontory using a vessel sealer. Next, the sigmoid colon was divided using the robotic stapler 60 mm green staple loads. The rest of the sigmoid colon mesentery was mobilized using vessel sealer. Additionally, the sigmoid colon was mobilized onto the colon to minimize injury to the ureters. I went to the foot of the bed to confirm sizers and placement of 29-mm Ethicon powered stapler. I re-scrubbed into the case. The robotic arms were temporarily undocked. A 29-mm anvil was placed with a 3-0 silk sutured at the tip of the anvil colors custodian. Then the anvil was placed via the left upper quadrant 12 mm port. All robotic arms were re-docked. I went back to the console. The staple line was opened using hook cautery. The anvil was entered into the proximal descending colon. The colotomy was closed using 60 mm green load. Next, the sharp tip of the anvil colors custodian was brought through the middle of the staple line. The anvil colors custodian was removed from the abdomen using empty clip appliers. I went to the foot of the bed to place the powered Ethicon 29 mm stapler via the rectum. The anvil and stapler were connected for 1 minute. The doughnuts were intact on both sides and thick. An intraoperative leak test was performed as I inserted the colonoscope to the anastomosis. Endoscopic images were obtained. Irrigation was placed in the pelvis and no air leaks were identified. Irrigation fluid was aspirated from the pelvis until dry. I went back to the console. All sponges and needles were removed from the abdominal cavity. The robot was undocked. I re-scrubbed into the case. Via the left upper quadrant port, the sigmoid colon was removed using 15 mm Endo Catch bag. All sponges were removed from the abdominal cavity. The left upper q uadrant incision was widened to 3-cm. No contamination had occurred throughout the case. The fascial defect was oversewn using 0 Vicryl and a Haim Cabrales. Next all pneumoperitoneum was evacuated from the abdominal cavity. The 8-mm trocar sites were reapproximated using 4-0 Monocryl in an interrupted subcuticular fashion. Local anesthetic was infiltrated to all wounds for postop analgesia. All incisions were also cleansed with diluted hydrogen peroxide. An Optifoam surgical dressing was placed over the colon extraction site. Liquid glue was applied to the rest of the skin incisions. The patient had tolerated the procedure well. The patient was extubated successfully. The patient was transferred to the postanesthesia care unit in stable condition. Intraoperative findings were described in detail to the patient's family. Console time: 74 minutes
--- NOTE | 2024-11-14 13:41 | P.DS ---
Providers Date of admission: 11/13/2024 Expected date of discharge: 11/15/24 Attending physician: Adrianne Marin Primary care physician: Leroy Kessler - Discharge Diagnosis(es) (1) Sigmoid volvulus Current Visit: Yes Status: Acute (2) Diverticulosis large intestine w/o perforation or abscess w/o bleeding Current Visit: Yes Status: Acute Hospital Course: POSTOPERATIVE DIAGNOSES: 1. Sigmoid volvulus with intermittent bowel obstruction 2. Sigmoid diverticulosis 3. Morbid obesity to excess calories, BMI 38.5 4. Hypertensive heart disease 5. Depressive disorder 6. Postoperative nausea and vomiting 7. Generalized anxiety disorder 8. Family history colon cancer 9. Pelvic adhesions COURSE: The patient is a 54-year-old female with long-standing history of chronic constipation including large bowel obstruction secondary to sigmoid volvulus. She underwent prior colonoscopy however incomplete due to redundancy of her colon. Patient does a family history of colon cancer as well. She underwent sigmoid colectomy to address sigmoid volvulus including intermittent large bowel obstruction. Postoperatively, patient was tolerating diet, pain control, she was voiding spontaneously. Close outpatient follow-up was described with nonnarcotic pain management. Procedures: Date of Procedure: 11/14/24 Description of Procedure: OPERATION: 1. Robotic-assisted daVinci Xi sigmoid colectomy with low anterior resection using 29 mm Ethicon powered stapler 2. Intraoperative colonoscopy used for sigmoidoscopy Anesthesia: GETA, local, regional Estimated Blood Loss (ml): 5 Pathology: 1. Sigmoid colon 2. EEA donuts 3. Proximal colotomy Condition: stable Disposition: floor COMPLICATIONS: None. Operative Findings: 1. Redundant sigmoid colon with intermittent sigmoid volvulus 2. Anastomosis with EEA stapler 29 mm 3. No tension or torsion along the anastomosis 4. Doughnuts thick and both sides and viable 5. Moderately redundant sigmoid colon without tension at anastomosis 6. Negative leak test with viable anastomosis. 7. Pelvic adhesions along midline, lysed including along sigmoid colon Date of Procedure: 11/13/24 Description of Procedure: PREOPERATIVE DIAGNOSIS: Sigmoid volvulus Intermittent large bowel obstruction POSTOPERATIVE DIAGNOSIS: Sigmoid volvulus Intermittent large bowel obstruction Diverticulosis, sigmoid OPERATION: Colonoscopy to the hepatic flexure Patient Condition at Discharge: Stable Plan - Discharge Summary Discharge Rx Participant: Yes New Discharge Prescriptions: New Ibuprofen [Motrin] 600 mg PO Q8HR PRN #30 tab PRN Reason: Pain Acetaminophen Tab [Tylenol Tab] 1,000 mg PO Q6HR PRN #30 tablet PRN Reason: Pain Cyclobenzaprine [Flexeril] 10 mg PO TID #30 tab Simethicone [Gas-X] 125 mg PO AC-TID PRN #20 capsule PRN Reason: Pain Continue Vit C/E/Zn/Coppr/Lutein/Zeaxan [Preservision Areds 2 Softgel] 1 each PO BID FLUoxetine HCL [PROzac] 10 mg PO QAM Lactulose [Cephulac] 20 gm PO HS hydroCHLOROthiazide 25 mg PO QAM Discharge Medication List Vit C/E/Zn/Coppr/Lutein/Zeaxan [Preservision Areds 2 Softgel] 1 each PO BID 02/22/21 [History] hydroCHLOROthiazide 25 mg PO QAM 02/22/21 [History] FLUoxetine HCL [PROzac] 10 mg PO QAM 05/09/24 [History] Lactulose [Cephulac] 20 gm PO HS 11/12/24 [History] Acetaminophen Tab [Tylenol Tab] 1,000 mg PO Q6HR PRN #30 tablet 11/14/24 [Rx] Cyclobenzaprine [Flexeril] 10 mg PO TID #30 tab 11/14/24 [Rx] Ibuprofen [Motrin] 600 mg PO Q8HR PRN #30 tab 11/14/24 [Rx] Simethicone [Gas-X] 125 mg PO AC-TID PRN #20 capsule 11/14/24 [Rx] Follow up Appointment(s)/Referral(s): Adrianne Marin MD [STAFF PHYSICIAN] - 11/18/24 6:30 pm Patient Instructions/Handouts: Colectomy Diet (DC), Laparoscopic Bowel Resection (GEN) Activity/Diet/Wound Care/Special Instructions: EXPECT BOWEL MOVEMENT WITH BLOOD FOR 1 WEEK, November 21 TAKE LAXATIVE FOR CONSTIPATION AFTER 4 DAYS, November 18 NO LONG DRIVES OR AIRPLANE RIDES OVER 60 MINUTES FOR THE NEXT 2 WEEKS, November 21 DUE TO HIGH RISK OF PULMONARY EMBOLISM/DVTs May drive after 24 to 48 hours after recovery from anesthesia. Wear abdominal binder for comfort. No lifting over 4 pounds in 4 weeks, December 15November shower. No bath tub soaks for two weeks until May 9 Avoid steak, tough meats and nuts, broccoli, seeds such as raspberry seeds. See diverticulitis, low fiber, colectomy diet Use Tylenol and ibuprofen scheduled for the next 24-48 hours for best pain relief. Use ice along incisions for today to prevent swelling. Discharge Disposition: HOME SELF-CARE
[2024-11-14] MEDS: SIMETHICONE 40 MG/0.6 ML DROPS 2,000 MG/30 ML BOTTLE PO SCH (14:22)
[2024-11-14] MEDS: fentaNYL PCA 500 MCG/50 ML BAG IV SCH (15:43)
[2024-11-14] MEDS: HEPARIN SODIUM,PORCINE 5,000 UNIT/ML 1 ML VIAL SQ SCH (17:53)
--- NOTE | 2024-11-14 20:09 | P.PN ---
Progress Note - Text Progress Note Date: 11/14/24 Discussed with nursing. 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 Discharge held for today. Fluid bolus, tylenol, toradol, magnesium ordered.
[2024-11-14] MEDS: ACETAMINOPHEN TAB 500 MG TAB PO SCH (20:13)
[2024-11-14] MEDS: KETOROLAC 15 MG/ML 1 ML VIAL IVP SCH (20:14)
[2024-11-14] MEDS: MAGNESIUM SULFATE-D5W PMX 1 GM in DEXTROSE/WATER 1 100ML.BAG IVPB SCH (20:14)
[2024-11-14] MEDS: SODIUM CHLORIDE 0.9% 1,000 ML IV ONE (20:15)
[2024-11-14 21:11] VITALS: RESP 18
[2024-11-14] MEDS: TAMSULOSIN 0.4 MG CAP.ER.24H PO STA (21:54)
[2024-11-14] MEDS: metroNIDAZOLE-NS PMX 500 MG in SALINE 1 100ML.BAG IVPB SCH (22:41)
[2024-11-15] MEDS: ceFAZolin 2 GM in DEXTROSE 5% IN WATER 50 ML IVPB SCH (00:04)
[2024-11-15 01:52] VITALS: PULSE 64
[2024-11-15 08:00] VITALS: BP 98/58; TEMP 98.4
[2024-11-15] MEDS: ALVIMOPAN 12 MG CAPSULE PO SCH (08:28)
[2024-11-15] MEDS: HEPARIN SODIUM,PORCINE 5,000 UNIT/ML 1 ML VIAL SQ SCH (08:28)
--- NOTE | 2024-11-15 11:00 | P.PN ---
Subjective Progress Note Date: 11/15/24 CHIEF COMPLAINT: Sigmoid volvulus HISTORY OF PRESENT ILLNESS: The patient is a 54-year-old female with intermittent bowel obstruction due to sigmoid volvulus status post colectomy. Last night, patient had nausea and pain, headache and lethargy. She was treated with magnesium, Toradol, Tylenol, IV fluid bolus. Today, she had a bowel movement. She is passing flatus. She is ambulating. She tolerated diet. Her headache is resolved. She is urinating well. Her pain is well-controlled. She is seeking to go home today. ROS: No reports of nausea and vomiting. No bowel movements. No fevers or chills. No new chest pain. No productive sputum PHYSICAL EXAM: VITAL SIGNS: Reviewed CONSTITUTIONAL: Well developed and in no acute distress. EYES: Conjuctivae without sclera icterus. Extraocular movements grossly intact. HEAD, EARS, NOSE, THROAT: Moist buccal mucosa. Head is atraumatic, no rmocephalic. Hears conversational speech. No nasal drainage. RESPIRATORY: Non-labored respirations and equal bilateral excursions. CARDIOVASCULAR: Palpable 2+ radial pulses. ABDOMEN: Incisions clean dry intact MUSCULOSKELETAL: No gross deformity of the lower extremities noted. No clubbing. No cyanosis. SKIN: Good skin turgor. Well perfused. NEUROLOGIC: Cranial nerves II through XII grossly intact. No focal or lateralizing signs. PSYCH: Appropriate affect. Alert and oriented to person, place and time. CLINICAL LABS: Reviewed. ASSESSMENT: 1. Large bowel obstruction due to sigmoid volvulus PLAN: 1. Clinically she is doing very well. Discharge instructions were reviewed. Dictation was produced using [employer] dictation software. Please excuse any grammatical, word or spelling errors. Objective - Vital Signs Vital signs: Vital Signs Temp 98.4 F 11/15/24 07:16 Pulse 64 11/15/24 07:50 Resp 18 11/15/24 07:50 BP 98/58 11/15/24 07:16 Pulse Ox 97 11/15/24 09:07 FiO2 Intake & Output 11/14/24 11/15/24 11/15/24 18:59 06:59 18:59 Intake Total 1200 540 Output Total 205 1500 Balance 995 -960 Intake: IV 1200 Oral 540 Output: Urine 200 1500 Estimated Blood Loss 5 Other: Voiding Method Toilet Toilet # Voids 2 - Labs CBC & Chem 7: 11/14/24 04:06 11/14/24 04:06 Assessment and Plan (1) Sigmoid volvulus Current Visit: Yes Status: Acute Code(s): K56.2 - VOLVULUS SNOMED Code(s): 322220770 (2) Diverticulosis large intestine w/o perforation or abscess w/o bleeding Current Visit: Yes Status: Acute Code(s): K57.30 - DVRTCLOS OF LG INT W/O PERFORATION OR ABSCESS W/O BLEEDING SNOMED Code(s): 950835559
--- NOTE | 2024-11-16 18:54 | P.ANPRN ---
Procedure Note - Anesthesia - Nerve Block Performed Bilateral Erector Spinae Single Time Out Performed: Yes Date of Procedure: 11/14/24 Procedure Start Time: Procedure Stop Time: Location of Patient: PreOp Indication: Acute Post-Operative Pain, Requested by Surgeon Sedation Type: Sedate with meaningful contact maintained Preparation: Sterile Prep Position: Prone Needle Types: Pajunk Needle Gauge: 21 Ultrasound used to visualize needle placement: Yes Ultrasound used to observe medication spread: Yes Blood Aspirated: No Pain Paresthesia on Injection Noted: No Resistance on Injection: Normal Image Stored and Saved: Yes Events: Uneventful and Well Tolerated (Ropivacaine 0.5% 15 cc plus normal saline 10 cc plus dexamethasone 4 mg given bilaterally at L1)
== END 2024-11-15 12:05 | disposition home or self-care (01) | DRG 331 ==
LOC: ORWHC2ENDO 09:08 → 4SSUR 09:09
PROVIDERS: ADMIT Surgery Plastic and Reconstructive Surgery; ATTEND Surgery Plastic and Reconstructive Surgery
PROC: 0DJD8ZZ Inspection of Lower Intestinal Tract, Via Natural or Artificial Opening Endoscopic (ICD-10-PCS; 2024-11-13)
PROC: 8E0W4CZ Robotic Assisted Procedure of Trunk Region, Percutaneous Endoscopic Approach (ICD-10-PCS; principal; 2024-11-14 10:15)
PROC: 0DNW4ZZ Release Peritoneum, Percutaneous Endoscopic Approach (ICD-10-PCS; principal; 2024-11-14 10:15)
PROC: 0DTN4ZZ Resection of Sigmoid Colon, Percutaneous Endoscopic Approach (ICD-10-PCS; principal; 2024-11-14 10:15)
PROC: 3E0T3BZ Introduction of Anesthetic Agent into Peripheral Nerves and Plexi, Percutaneous Approach (ICD-10-PCS; principal; 2024-11-14 10:15)
DX: K56.2 Volvulus (principal); E66.01 Morbid (severe) obesity due to excess calories; I10 Essential (primary) hypertension; F32.A Depression, unspecified; K57.30 Diverticulosis of large intestine without perforation or abscess without bleeding; E86.0 Dehydration; F41.1 Generalized anxiety disorder; Z80.0 Family history of malignant neoplasm of digestive organs; K66.0 Peritoneal adhesions (postprocedural) (postinfection); Z68.38 Body mass index [BMI] 38.0-38.9, adult; K64.0 First degree hemorrhoids; K59.09 Other constipation; N73.6 Female pelvic peritoneal adhesions (postinfective)
CPT/HCPCS: 45378; 64468; 80048; 80053; 85025; 86850; 86900; 86901